=== PATIENT | female | born 1955 | race Two or more races ===

== ENCOUNTER 2016-04-03 10:11 | Day surgery (SDC) | payer OTHER ==
[~2016-04-03 10:11] MED LIST: LACTATED RINGERS 1,000 ML IV SCH; MIDAZOLAM HCL 5 MG/5 ML VIAL IV ONE
[2016-04-03] MEDS ORDERED: IV START KIT ONE (10:23)
[2016-04-03] MEDS ORDERED: LACTATED RINGERS 1,000 ML ONE (10:23)
[2016-04-03] MEDS ORDERED: MIDAZOLAM HCL 1 MG/ML 2ML VIAL ONE (10:24)
[2016-04-03] MEDS ORDERED: LIDOCAINE 2% (PRES FREE) 5 ML VIAL ONE (10:34)
[2016-04-03] MEDS ORDERED: PROPOFOL 40 ML IV ONE (10:34)
[2016-04-03 16:18] LABS: HELICOBACTER PYLORII DETECTION NEGATIVE (NEGATIVE)
--- NOTE | 2016-04-07 13:58 | SURGPATH ---
[facility] [address] [place] [id number] Patient Name: JOSE LUIS BRADFORD MR#: [id number] : 1955 Gender: F Specimen #: [id number] Collected: 04/03/2016 Received: 04/04/2016 Reported: 04/07/2016 Submitting Phys: JOSEF NEAL Copy To Phys: [facility] Clinical History / Pre-Operative Diagnosis: ABDOMINAL PAIN WITH DYSPHAGIA; SATIETY; HISTORY OF CECAL TUBULAR ADENOMATOUS POLYP; RULE OUT GIARDIA, CELIAC SPRUE AND GASTRITIS Specimen Source / Surgical Procedure Performed: #1-DUODENAL BIOPSY; #2-ANTRAL BIOPSY; #3-CECAL POLYP Interpretation: 1. DUODENUM, BIOPSY: - SMALL BOWEL MUCOSA SHOWING NO DIAGNOSTIC ABNORMALITIES. - NO EVIDENCE OF CELIAC DISEASE. - NO EVIDENCE OF SIGNIFICANT INFLAMMATION, VILLOUS BLUNTING, OR MALIGNANCY. 2. GASTRIC ANTRUM, BIOPSY: - MILD CHRONIC GASTRITIS. - NO MICROORGANISMS IDENTIFIED WITH ROUTINE STAINING. - NO EVIDENCE OF ACUTE INFLAMMATION, INTESTINAL METAPLASIA, OR MALIGNANCY. 3. CECUM, BIOPSY: - MULTIPLE FRAGMENTS OF TUBULOVILLOUS ADENOMAS. - NO EVIDENCE OF MALIGNANCY. Electronically Signed Out Reginaldo Ventura M.D., Ph.D. Gross Description: #1 The specimen is received in a formalin filled container labeled with the patient's name and "duodenal biopsy". A single castanon biopsy is 0.5 cm. Totally embedded in cassette #1. #2 The specimen is received in a formalin filled container labeled with the patient's name and "antral biopsy". Two castanon biopsies are each 0.4 cm. Totally embedded in cassette #2. #3 The specimen is received in a formalin filled container labeled with the patient's name and "cecal polyp". Multiple polypoid castanon biopsy fragments are 0.3 x 0.2 x 0.2 cm to 1.0 x 0.8 x 0.5 cm. The largest fragment is trisected. Totally embedded in cassette #3. Sachin Craig Microscopic Description: 1. Examination of multiple levels from the duodenum biopsy shows a single fragment of histologically unremarkable small bowel mucosa. The villous architecture is intact without evidence of blunting. There is no evidence of increased intraepithelial lymphocytes. There is no evidence of significant inflammation or malignancy. 2. Examination of multiple levels from the gastric antrum biopsy shows two fragments of gastric mucosa with expansion of the lamina propria by a mixed inflammatory cell infiltrate consisting of lymphocytes, plasma cells, and eosinophils. No neutrophils are seen. No microorganisms identified with routine staining. There is no evidence of intestinal metaplasia or malignancy. 3. Examination of multiple levels from the cecum biopsy shows multiple fragments of colonic mucosa with adenomatous changes within glands, tubules, and blunted villi. There is no evidence of malignancy. 1: 39948 2: 22985 3: 07728 K29.50 D12.0
== END 2016-04-03 12:15 | disposition home or self-care (01) ==
LOC: SDC 10:11
PROVIDERS: ATTEND Internal Medicine Gastroenterology
PROC: 0DB98ZX Excision of Duodenum, Via Natural or Artificial Opening Endoscopic, Diagnostic (ICD-10-PCS; principal; 2016-04-03)
PROC: 0DB68ZX Excision of Stomach, Via Natural or Artificial Opening Endoscopic, Diagnostic (ICD-10-PCS; 2016-04-03)
PROC: 0DBH8ZX Excision of Cecum, Via Natural or Artificial Opening Endoscopic, Diagnostic (ICD-10-PCS; 2016-04-03)
DX: K29.50 Unspecified chronic gastritis without bleeding (principal); K29.80 Duodenitis without bleeding; Z12.11 Encounter for screening for malignant neoplasm of colon; D12.0 Benign neoplasm of cecum; Z86.010 Personal history of colon polyps; Z87.891 Personal history of nicotine dependence; I10 Essential (primary) hypertension; E78.5 Hyperlipidemia, unspecified; J45.909 Unspecified asthma, uncomplicated; M79.1 Myalgia; G89.29 Other chronic pain; Z79.891 Long term (current) use of opiate analgesic; F41.8 Other specified anxiety disorders; E55.9 Vitamin D deficiency, unspecified; Z88.5 Allergy status to narcotic agent; Z88.2 Allergy status to sulfonamides
CPT/HCPCS: 43239; 45385; 87081; J2250; J7120